=== PATIENT | male | born 1985 | race Caucasian/White ===

== ENCOUNTER 2021-11-18 15:55 | Outpatient (CLI) | payer OTHER | END 2021-11-18 15:56 | disposition home or self-care (01) | LOC: LAB.N 15:55 | PROVIDERS: ATTEND Surgery | DX: Z01.812 Encounter for preprocedural laboratory examination (principal); K43.9 Ventral hernia without obstruction or gangrene; Z20.822 Contact with and (suspected) exposure to COVID-19 ==

== ENCOUNTER 2021-11-19 11:04 | Day surgery (SDC) | payer OTHER ==
[2021-11-19] MEDS ORDERED: LACTATED RINGERS 1,000 ML IV ONE ×2 (11:11→13:49)
[2021-11-19] MEDS ORDERED: CEFAZOLIN SODIUM IN 0.9 % NACL 2 GM/50 ML BAG IV ONE (11:17)
[2021-11-19] MEDS ORDERED: ePHEDrine 50 MG/ML VIAL IVP PRN (12:13)
[2021-11-19] MEDS ORDERED: METOCLOPRAMIDE 10 MG/2 ML VIAL IVP PRN (12:13)
[2021-11-19] MEDS ORDERED: NALOXONE 0.4 MG/ML VIAL IVP PRN (12:13)
[2021-11-19] MEDS ORDERED: HYDROmorphone 0.5 MG/0.5 ML SYRINGE IVP PRN (12:13)
[2021-11-19] MEDS ORDERED: fentaNYL 100 MCG/2 ML VIAL IVP PRN (12:13)
[2021-11-19] MEDS ORDERED: ATROPINE ABBOJECT 1 MG/10 ML SYRINGE IVP PRN (12:13)
[2021-11-19] MEDS ORDERED: ONDANSETRON 4 MG/2 ML VIAL IVP PRN (12:13)
[2021-11-19] MEDS ORDERED: MORPHINE 2 MG/ML CARPUJECT IVP PRN (12:13)
--- NOTE | 2021-11-19 12:13 | ANESTHESIA ---
Pre-Anesthesia VS, & Labs - Diagnosis ventral hernia - Procedure open ventral hernia repair Height: 5 ft 10 in Weight (kg): 87.2 kg Body Mass Index: 27.6 BMI Classification: Overweight - NPO >8 hours Home Medications and Allergies Home Medications: Ambulatory Orders No Known Home Medications 11/09/21 No Known Home Medications 11/09/21 Allergies/Adverse Reactions: Allergies Allergy/AdvReac Type Severity Reaction Status Date / Time No Known Drug Allergies Allergy Verified 11/19/21 11:26 Anes History & Medical History - Anesthetic History Anesthesia Complications: reports: No previous complications Family history of Anesthesia Complications: Denies - Medical History Cardiovascular: reports: None Pulmonary: reports: None Gastrointestinal: reports: None Urinary: reports: Kidney stones Musculoskeletal: reports: None Endocrine/Autoimmune: reports: None Skin: reports: None Smoking Status: Current every day smoker Psychosocial: reports: Substance abuse, Cannabis, Other (chews tobacco) History of Cancer?: No Exam General: Alert, Oriented x3, Cooperative Dental: WNL Mouth Openin Fingerbreadth Neck Mobility: Normal Mallampati classification: II Thyromental Distance: 4-6 cm Respiratory: Lungs clear Cardiovascular: Regular rate Plan Anesthesia Type: General Consent for Procedure(s) Verified and Reviewed: Yes Code Status: Attempt Resuscitation ASA classification: 2-Mild systemic disease Is this case an emergency?: No
[2021-11-19] MEDS ORDERED: fentaNYL 100 MCG/2 ML VIAL ONE (12:20)
[2021-11-19] MEDS ORDERED: MIDAZOLAM 2 MG/2 ML VIAL ONE (12:20)
[2021-11-19] MEDS ORDERED: LIDOCAINE-MPF 2% 5 ML VIAL ONE (12:21)
[2021-11-19] MEDS ORDERED: PROPOFOL 200 MG/20 ML VIAL IVP ONE (12:21)
[2021-11-19] MEDS ORDERED: BUPIVACAINE 0.25% PF 30 ML VIAL ONE (12:26)
--- NOTE | 2021-11-19 12:37 | HISTORY & PHYSICAL EXAMINATION ---
Chief Complaint - Chief Complaint Chief Complaint: hernia bulge History of Present Illness - History Obtained From Records Reviewed: yes History obtained from: pt Exam Limitations: none - History of Present Illness HPI Comment/Other: epigastric hernia bulge. getting bigger and more uncomfortable History - Past Medical History Cardiovascular: reports: None Respiratory: reports: None Endocrine/Autoimmune: reports: None GI: reports: None : reports: Kidney stones HEENT: reports: Chronic vision loss Psych: reports: None Musculoskeletal: reports: None Derm: reports: None MRSA Hx?: No Meds/Allgy - Home Medications Home Medications: Ambulatory Orders Medication Instructions Recorded Confirmed No Known Home Medications 11/09/21 11/19/21 - Allergies Allergies/Adverse Reactions: Allergies Allergy/AdvReac Type Severity Reaction Status Date / Time No Known Drug Allergies Allergy Verified 11/19/21 11:26 Review of Systems - Other Findings Other Findings: 10 pt ros as above otherwise unremarkable Exam - Physical Exam General Appearance: positive: No acute distress, Alert Eyes Bilateral: positive: PERRL, EOMI, No scleral icterus ENT: positive: No signs of dehydration Neck: positive: No JVD Respiratory: positive: No respiratory distress, Breath sounds nml Cardiovascular: positive: Regular rate & rhythm Abdomen: positive: Other (3 cm epigastic hernia. no umbilical hernia) Neurologic/Psychiatric: positive: Oriented x3 Conclusion/Plan - Problem List (1) Epigastric hernia Conclusion/Plan: plan open repair with mesh. parq held and consent obtained
[2021-11-19] MEDS ORDERED: BUPIVACAINE 0.25% PF 30 ML VIAL SUBQ ONE (12:54)
[2021-11-19] MEDS ORDERED: DEXAMETHASONE 4 MG/ML VIAL ONE (12:59)
[2021-11-19] MEDS ORDERED: ONDANSETRON 4 MG/2 ML VIAL ONE (12:59)
[2021-11-19] MEDS ORDERED: LACTATED RINGERS 1,000 ML IV SCH (13:00)
[2021-11-19] MEDS ORDERED: HYDROcod/ACETAM 10 MG/325 MG TABLET PO PRN (14:00)
--- NOTE | 2021-11-19 14:11 | OPERATIVE REPORT ---
Operative Report - General Procedure Date: 11/19/21 Planned Procedure: open repair epigastric hernia Procedure Performed: epigastric hernia Post Op Diagnosis: incarcerated epigastric hernia - Procedure Note Primary Surgeon: wilfred coe Anesthesia Technique: General LMA, Local Pathology: incarcerated fat removed. not sent Estimated Blood Loss (mL): 1 Drain/Tube Type: Other (none) Indications: pain Findings: 1 cm defect. 3.5 cm incarcertated preperitoneal fat Complications: none - Other Other Information/Narrative: The patient was properly identified brought to the operating room and placed in supine position. Sequential compression devices were placed. Larygenal mask anesthesia was induced. The patient was prepped and draped in a sterile fashion and given preoperative antibiotics. Local anesthetic was given throughout the procedure. An incision was made over the marked area of epigastric hernia. Dissection proceeded sharply. Subcutaneous tissue was mobilized away from the fascial defect by 2 cm in all directions. 2.5 cm incarcerated preperitoneal fat was removed with sharp disection and 2 O vicryl tie. remainder adipose tissue was reduced. The peritoneum was then carefully released from the fascial defect edge. A preperitoneal space was developed for mesh placement. Polypropylene mesh was cut to size approximately 1.5 x 2.5 inches and placed preperitoneal. The mesh was secured with 9 interrupted 0 Ethibond sutures. Fascia was closed over the mesh with O ethibond. The mesh lay in good position without tension. Subcutaneous tissue was reapproximated with interrupted 2-0 Vicryl suture. Buried interrupted subdermal 3-0 Vicryl sutures were then placed. Skin was closed with a running 4-0 Monocryl subcuticular suture. Dressing was applied. Patient tolerated the procedure the procedure well was awakened and brought to recovery in good condition.
[2021-11-19 14:45] VITALS: BP 119/91
--- NOTE | 2021-11-19 15:12 | ANESTHESIA POST OP EVALUATION ---
Anesthesia Post Eval - Post Anesthesia Eval Vitals: Last Vital Signs Temp 36.0 C L 11/19/21 14:31 Pulse 55 L 11/19/21 14:45 Resp 15 11/19/21 14:45 BP 119/91 H 11/19/21 14:45 Pulse Ox 98 11/19/21 14:45 CV Function Including HR & BP: Stable Pain Control: Satisfactory Nausea & Vomiting: Negative Mental Status: Baseline Respiratory Status: Airway Patent Hydration Status: Satisfactory Anesthesia Complications: None
== END 2021-11-19 11:05 | disposition home or self-care (01) ==
LOC: SDS 11:04
PROVIDERS: ATTEND Surgery
DX: K43.6 Other and unspecified ventral hernia with obstruction, without gangrene (principal); F17.200 Nicotine dependence, unspecified, uncomplicated; F17.220 Nicotine dependence, chewing tobacco, uncomplicated
CPT/HCPCS: 49572; C1781; J0690; J7120